=== PATIENT | male | born 1990 | race African-American/Black ===

== ENCOUNTER 2017-04-13 10:27 | Emergency (ER) | payer SELFPAY ==
[2017-04-13 12:09] VITALS: BP 152/80
--- NOTE | 2017-04-13 12:09 | UC ---
Throat Pain/Nasal Andrey HPI - HPI Summary HPI Summary: This is an otherwise healthy 26 yo male who presents with a 3d h/o of ST and L ear pain. He has been febrile. He has been unable to swallow much due to pain , but no n/v. No rash. - History of Current Complaint Chief Complaint: UCGeneralIllness Stated Complaint: SORE THROAT - Allergies/Home Medications Allergies/Adverse Reactions: Allergies Allergy/AdvReac Type Severity Reaction Status Date / Time No Known Allergies Allergy Verified 04/13/17 10:42 PMH/Surg Hx/FS Hx/Imm Hx Previously Healthy: Yes Other History Of: Negative For: HIV, Hepatitis B, Hepatitis C, Anticoagulant Therapy - Surgical History Surgical History: Yes Surgery Procedure, Year, and Place: THROAT SURGERY X3 - Family History Known Family History: Positive: Hypertension Negative: Cardiac Disease, Diabetes, Renal Disease - Social History Alcohol Use: Occasionally Substance Use Type: Marijuana Smoking Status (MU): Light Every Day Tobacco Smoker Type: Cigarettes Amount Used/How Often: 1 PPD Review of Systems Constitutional: Fever Skin: Negative Eyes: Negative ENT: Sore Throat, Ear Ache Respiratory: Negative Cardiovascular: Negative Gastrointestinal: Negative Genitourinary: Negative Motor: Negative Neurovascular: Negative Musculoskeletal: Negative Neurological: Negative Psychological: Negative All Other Systems Reviewed And Are Negative: Yes Physical Exam Triage Information Reviewed: Yes Appearance: Ill-Appearing Vital Signs: Initial Vital Signs Temp 98.9 F 04/13/17 10:38 Pulse 90 04/13/17 10:38 Resp 18 04/13/17 10:38 BP 170/100 04/13/17 10:38 Pulse Ox 100 04/13/17 10:38 Vital Signs Reviewed: Yes ENT: Positive: TM red - L ear, mild, Tonsillar swelling - 3+, symmetric, Tonsillar exudate Neck: Positive: Supple, Nontender, Enlarged Nodes @ - anterior cervical Respiratory: Positive: Lungs clear, Normal breath sounds. Negative: Crackles, Rhonchi, Stridor, Wheezing Cardiovascular: Positive: RRR, No Murmur Abdomen Description: Positive: Nontender Diagnostics - Laboratory Diagnostic Studies Completed/Ordered: rapid strep - positive Throat Pain/Nasal Course/Dx - Course Course Of Treatment: This is a 26 yo male with 3d h/o ST and ear pain with fever. He has grossly erythematous, edematous tonsils with exudate. Strep pos. No obvious sign of peritonsillar abscess. Treat with PCN x 10d - Differential Dx/Diagnosis Differential Diagnosis/HQI/PQRI: Laryngitis, Peritonsillar Abscess, Pharyngitis , Tonsillitis Provider Diagnoses: 1. Strep pharyngitis. 2. Otitis media - L Discharge - Discharge Plan Condition: Stable Disposition: HOME Prescriptions: Penicillin VK 500 MG TAB(NF) [Penicillin VK 500 mg Tab] 500 mg PO TID #30 tab Patient Education Materials: Tonsillitis (ED) Referrals: Non Staff,Doctor [Primary Care Provider] - Additional Instructions: Instructions: 1. Please take antibiotics as directed 2. Use tylenol and/or ibuprofen or naproxen for control of pain/fever 3. Hydrate well and eat soft foods
== END 2017-04-13 12:04 | disposition home or self-care (01) ==
LOC: UCEAST 10:27
DX: J02.0 Streptococcal pharyngitis (principal); H66.92 Otitis media, unspecified, left ear; F17.210 Nicotine dependence, cigarettes, uncomplicated
CPT/HCPCS: 87651; 99212; G0463